=== PATIENT | male | born 1980 | race Caucasian/White ===

== ENCOUNTER 2024-03-09 18:29 | Emergency (ER) | payer OTHER, SELFPAY ==
[2024-03-09 18:36] VITALS: BP 153/90
[2024-03-09 18:52] LABS: % Basophils 0.5 % (0-2); % Eosinophils 1.9 % (0-6); % Immature Granulocytes 0.3 % (0-0.5); % Lymphocytes 33.9 % (20.5-51.1); % Neutrophils 52.4 % (42.2-75.2); Absolute Eosinophils 0.2 10^3/uL (0-0.7); Absolute Lymphocytes 2.6 10^3/uL (1.2-3.4); Absolute Monocytes 0.9 10^3/uL (0.1-0.6); Absolute Neutrophils 4.1 10^3/uL (1.4-6.5); Hematocrit 40.6 % (39.0-52.0); Hemoglobin 13.8 g/dL (13.0-18.0); Mean Corpuscular Hgb 29.4 pg (27.0-31.0); Mean Corpuscular Volume 86.4 fL (80.0-94.0); Mean Platelet Volume 9.5 fL (7.4-10.4); Nucleated Red Blood Cells % 0 % (-); Platelet Count 254 10^3/uL (130-400); Red Cell Dist. Width 12.3 % (11.5-14.5); White Blood Cell Count 7.7 10^3/uL (4.8-10.8)
[2024-03-09 19:11] LABS: ALT (SGPT) 37 U/L (0-50); AST (SGOT) 38 U/L (17-59); Albumin 4.5 g/dl (3.5-5.0); Alkaline Phosphatase 53 U/L (38-126); Blood Urea Nitrogen 17 mg/dl (9-20); Calcium 9.9 mg/dl (8.4-10.2); Carbon Dioxide 29 mmol/L (22-30); Chloride 103 mmol/L (98-107); Glucose 86 mg/dl (70-99); Potassium 4.4 mmol/L (3.5-5.1); Sodium 139 mmol/L (135-145); Total Bilirubin 0.3 mg/dl (0.2-1.3); eGFR > 60.00
[2024-03-09 19:40] VITALS: BMI 28.6
[2024-03-09 19:45] VITALS: BP 148/90
--- NOTE | 2024-03-09 19:46 | ED.GENMED ---
History of Present Illness
General
Chief Complaint: Back Pain
Source: patient
Exam Limitations: none
Time Seen by Provider: 03/09/24 19:28
History of Present Illness
History of Present Illness:
43yoM with no significant past medical history presenting for evaluation of a fever. Patient started to become sick about 3 days ago with a fever. Tmax 101-102. Patient also reports a mild cough and congestion. He started to have mild upper back
pain yesterday which worsened today. Pain is worse with movement and palpation. He has not taken anything [id number] for his symptoms. His thought he may have pneumonia and advised him to go to the ED for evaluation. Patient denies
any shortness of breath, chest pain, vomiting, diarrhea, abdominal pain. Patient's neighbor is also sick. No prior history of IV drug use.
Phy Exam
General Physical Exam
General Presentation: well appearing and no apparent distress
General age: appears stated age
General Skin: warm and dry
General Habitus: normal
General Mental: alert
ENT Exam
ENT Exam: normocephalic
Cardiovascular Exam
Cardiovascular Exam: regular rate/rhythm, no murmur and normal peripheral pulses
Pulmonary Exam
Pulmonary Exam: lungs clear, no respiratory distress, no rales, no crackles and no rhonchi
Neurological Exam
Neurological Exam: alert and other
[place] Coma Scale
Eye Opening: Spontaneous
Verbal Response: Oriented
Motor Response: Obeys Commands
GCS Total Score: 15
Musculoskeletal Exam
Musculoskeletal Exam: other (Mild tenderness to bilateral paraspinal musculature in thoracic region. No midline spinous process tenderness. No skin changes.)
Skin Exam
Skin Exam: normal color and warm/dry
Psychiatric Exam
Psychiatric Exam: normal mood/affect
Course
Orders/Labs/Results
Orders:
Orders
03/09/24 18:39
CXR2 [CR Chest - 2 Views ] Urgent
Comment:
Reason For Exam: back pain with cough
03/09/24 18:44
Complete Blood Count/With Diff Urgent
Comprehensive Metabolic Panel Urgent
03/09/24 19:42
Urinalysis Reflex To Culture Urgent
Date Specimen was Collected: 03/09/24
Time Specimen was Collected: 18:39
03/09/24 19:46
COVID-19 Antigen Urgent
Source: Nasal Swab
Influenza A+B Rapid Molecular Urgent
[facility] Source: Nasal Swab
Specimen Description:
Abnormal Lab Results
03/09/24
18:44
Absolute Monos (auto) 0.9 H 10^3/uL
(0.1-0.6)
Monocytes % 11.0 H %
(1.7-9.3)
03/09/24 18:44
03/09/24 18:44
Vital Signs
Initial and Last Documented VS:
Initial Vital Signs
Temp Pulse Resp BP Pulse Ox
98.3 F 68 16 153/90 98
03/09/24 18:36 03/09/24 18:36 03/09/24 18:36 03/09/24 18:36 03/09/24 18:36
Last Documented Vital Signs
Temp Pulse Resp BP Pulse Ox
98.3 F 68 16 148/90 99
03/09/24 18:36 03/09/24 18:36 03/09/24 18:36 03/09/24 19:45 03/09/24 20:00
MDM/Problems Addressed
Differential Diagnosis Includes:
43yoM here with fever x 3 days. Started with worsening upper back pain today which is worse with movement. Also c/o mild cough. He is afebrile and hemodynamically stable. He is well-appearing in no acute distress. There is mild tenderness to the
paraspinal musculature in the thoracic region. No midline spinous process tenderness. Lungs clear to auscultation and respirations unlabored. Differential diagnosis includes but is not limited to: Viral illness, bronchitis, pneumonia, muscle
strain
Initial ED plan: Check CBC, CMP, UA, COVID/flu swab, and chest x-ray. Patient declines analgesics.
*Critical Care Note
Total Time (30-74mins, 75-104mins- exclusive of procedures): Not Applicable
Update Note
Update Note:
Lab work overall unremarkable including normal white count. UA bland without signs of infection. COVID/flu swab negative. Chest x-ray is clear without infiltrates. Patient reports back pain is improving on reassessment. No indication for
hospitalization at this time. Suspect viral illness. Supportive care discussed. He was advised to follow-up closely with his PCP and strict ED return precautions discussed. He is in agreement with plan and was discharged in stable condition.
ED Attending Note
-
Portions of this chart may have been created with voice recognition software.� Occasional wrong word or��sound alike� substitutions may have occurred due to the inherent limitations of voice recognition software.
Discharge Plan
Departure
Patient Disposition: Home (Routine Discharge)
Date of Disposition: 03/09/24
Time of Disposition: 21:39
Patient with high blood pressure during this ER visit?: Yes
Discharge Problem:
Viral illness, Upper back pain
Instructions: Upper Back Pain (DC)
Referrals:
Michael Mcguire MD [Family Provider] -
Activity Restrictions/Additional Instructions:
Drink plenty of fluids and rest. Take Tylenol and ibuprofen as needed for pain.
Please follow-up with your family doctor in 2-3 days. Return to the ER with any new or worsening symptoms.
Interventions
Interventions:
*Risk Screen - Suicide Last Done: 03/09/24 18:36
*General Assessment Last Done: 03/09/24 19:40
*Neglect/Abuse Screening Last Done: 03/09/24 18:36
ED- Fall Risk Assessment Last Done: 03/09/24 19:40
*ED COVID-19 Vaccine History Last Done: 03/09/24 19:40
*Nursing Disposition Last Done: 03/09/24 21:51
ED-Musculoskeletal Assessment Last Done: 03/09/24 19:40
Discharge Date and Time
Discharge Date/Time: 03/09/24 21:51
Print Language: UPPER SORBIAN
[2024-03-09 19:54] LABS: Urine Albumin Negative (Neg - Trace); Urine Bilirubin Negative (Negative); Urine Character Clear (Clear); Urine Color Straw; Urine Glucose Negative (Negative); Urine Ketone Negative (Negative); Urine Leukocyte Negative (Negative); Urine Nitrite Negative (Negative); Urine Occult Blood Negative (Negative); Urine Urobilinogen Negative (Neg - 1+)
[2024-03-09 20:22] LABS: COVID-19 Antigen Negative (Negative)
== END 2024-03-09 21:51 | disposition home or self-care (01) ==
LOC: EMR 18:29
PROVIDERS: Physician Assistant; Student in an Organized Health Care Education/Training Program; EMERGENCY PHYSICIAN Emergency Medicine; FAMILY PHYSICIAN Internal Medicine
DX: B34.9 Viral infection, unspecified (principal); M54.6 Pain in thoracic spine
CPT/HCPCS: 99284; 71046; 80053; 81003; 85025; 87502; 87811